=== PATIENT | male | born 1990 | race Caucasian/White ===

== ENCOUNTER 2016-10-08 18:06 | Emergency (ER) | payer OTHER ==
[2016-10-08 18:41] VITALS: BP 162/87
--- NOTE | 2016-10-08 19:06 | UC ---
Lower Extremity/Ankle HPI - History of Current Complaint Chief Complaint: UCLowerExtremity Stated Complaint: KNEE COMPLAINT Time Seen by Provider: 10/08/16 18:49 Hx Obtained From: Patient Onset/Duration: Gradual Onset - started 2 days ago with redness and swelling in R knee. has gotten worse over past day. painful to ambulate. knee feels more swollen and red after standing at work today. denies known injury or skin break Severity Initially: Mild Severity Currently: Moderate Aggravating Factor(s): Standing, Ambulation Alleviating Factor(s): Rest, Elevation Able to Bear Weight: Yes - Allergies/Home Medications Allergies/Adverse Reactions: Allergies Allergy/AdvReac Type Severity Reaction Status Date / Time No Known Allergies Allergy Verified 05/11/15 09:11 PMH/Surg Hx/FS Hx/Imm Hx Previously Healthy: Yes Endocrine History Of: Reports: Diabetes - type 1 Cardiovascular History Of: Denies: Cardiac Disorders, Hypertension - Surgical History Surgical History: None - Family History Known Family History: Positive: None - Social History Occupation: Employed Full-time - cook Lives: With Family Alcohol Use: Occasionally Substance Use Type: None Smoking Status (MU): Light Every Day Tobacco Smoker Type: Cigarettes Cessation Counseling: Patient Advised to Stop - Immunization History Most Recent Tetanus Shot: UNSURE Review of Systems Constitutional: Negative Skin: Other - red swollen R knee Respiratory: Negative Cardiovascular: Negative Musculoskeletal: Other: - R knee pain Neurological: Negative Psychological: Negative All Other Systems Reviewed And Are Negative: Yes Physical Exam Triage Information Reviewed: Yes Appearance: Well-Appearing, No Pain Distress, Well-Nourished Vital Signs: Initial Vital Signs Temp 98.5 F 10/08/16 18:35 Pulse 106 10/08/16 18:35 Resp 18 10/08/16 18:35 BP 162/87 10/08/16 18:35 Pulse Ox 99 10/08/16 18:35 Vital Signs Reviewed: Yes Neck exam: Normal Respiratory Exam: Normal Cardiovascular Exam: Normal Musculoskeletal: Positive: ROM Limited @ - R knee with full flexion Skin: Positive: Other - R anterior knee erythemic, swollen and warm to touch. there are several scabbed abrasions on lower leg, none draining, pt states he scratches his skin. no certain area of fluctuance or obvious abscess surrounding knee Lower Extremity Course/Dx - Differential Dx/Diagnosis Differential Diagnosis/HQI/PQRI: Bursitis, Cellulitis, Gout, Sprain, Strain Provider Diagnoses: Cellulitis R knee Discharge - Discharge Plan Condition: Stable Disposition: HOME Prescriptions: Cephalexin CAP* [Keflex 500 CAP*] 500 mg PO QID #40 cap Referrals: Suman Cash MD [Primary Care Provider] - 2 Days (for recheck) Additional Instructions: elevate your leg and apply warm packs for 15-20 minutes every 2 hours take keflex as prescribed Return here for recheck tomorrow if worse otherwise see Dr. Cash next week for follow-up
[2016-10-08] MEDS ORDERED: cefTRIAXone VIAL(*) 1,000 MG VIAL IM ONE (19:08)
[2016-10-08] MEDS ORDERED: Cephalexin CAP* 500 MG PO ONE (19:15)
[2016-10-08] MEDS ORDERED: Lidocaine 1% MPF* 2 ML VIAL ONE (19:20)
== END 2016-10-08 19:43 | disposition home or self-care (01) ==
LOC: UCEAST 18:06
DX: L03.115 Cellulitis of right lower limb (principal); E10.9 Type 1 diabetes mellitus without complications; F17.290 Nicotine dependence, other tobacco product, uncomplicated
CPT/HCPCS: 96372; 99212; A9270-GY; G0463; J0696

== ENCOUNTER 2018-02-28 16:10 | Emergency (ER) | payer BC ==
[2018-02-28 16:21] VITALS: BP 130/81
[2018-02-28] MEDS ORDERED: Ciprofloxacin 0.3% OPTH.SOL* 2.5 ML BTL RIGHT EYE ONE (16:29)
--- NOTE | 2018-02-28 16:29 | UC ---
Eye Complaint HPI - HPI Summary HPI Summary: 27 yo male presents with right eye redness, itching, and drainage since last night. Woke up this morning and his right eye was crusted with yellow discharge. He wears glasses, but never contacts. Denies fever, chills, recent illness, or vision changes. - History of Current Complaint Chief Complaint: UCEye Stated Complaint: EYE IRRITATION Time Seen by Provider: 02/28/18 16:25 Hx Obtained From: Patient Onset/Duration: Sudden Onset Timing: Constant Severity Initially: Mild Severity Currently: Mild Pain Intensity: 3 Pain Scale Used: 0-10 Numeric - Allergies/Home Medications Allergies/Adverse Reactions: Allergies Allergy/AdvReac Type Severity Reaction Status Date / Time No Known Allergies Allergy Verified 02/28/18 16:21 Home Medications: Home Medications Insulin Glargine,Hum.rec.anlog [Candida Stephenson U-100] 02/28/18 [History] PMH/Surg Hx/FS Hx/Imm Hx Endocrine History: Diabetes - Surgical History Surgical History: None - Family History Known Family History: Positive: None - Social History Lives: With Family Alcohol Use: Occasionally Substance Use Type: None Smoking Status (MU): Light Every Day Tobacco Smoker Type: Cigarettes - Immunization History Most Recent Tetanus Shot: UNSURE Review of Systems Constitutional: Negative Skin: Negative Eyes: Drainage, Eye Redness ENT: Negative Respiratory: Negative Cardiovascular: Negative Gastrointestinal: Negative Neurological: Negative Psychological: Negative All Other Systems Reviewed And Are Negative: Yes Physical Exam - Summary Physical Exam Summary: GENERAL: NAD. WDWN. No pain distress. SKIN: No rashes, sores, lesions, or open wounds. HEENT: Head: AT/NC Eyes: EOM intact. PERRLA. Right eye: Mild conjunctiva edema and erythema. Mild scleral injection with yellow purulent matter. Left eye: Conjunctiva clear without inflammation or discharge. Ears: Hearing grossly normal. TMs intact, no bulging, erythema, or edema. Nose: Nasal mucosa pink and moist. NTTP maxillary and frontal sinus. Throat: Posterior oropharynx without exudates, erythema, or tonsillar enlargement. Uvula midline. NECK: Supple. Nontender. No lymphadenopathy. CHEST: No accessory muscle use. Breathing comfortably and in no distress. CV: Pulses intact. Brisk cap refill. NEURO: Alert. CN II-XII grossly intact. PSYCH: Age appropriate behavior. Triage Information Reviewed: Yes Vital Signs: Initial Vital Signs Temp 98 F 02/28/18 16:19 Pulse 97 02/28/18 16:19 Resp 16 02/28/18 16:19 BP 130/81 02/28/18 16:19 Pulse Ox 100 02/28/18 16:19 Eye Complaint Course/Dx - Course Course Of Treatment: Right eye conjunctivitis - Differential Dx/Diagnosis Provider Diagnoses: Right eye conjunctivitis Discharge - Sign-Out/Discharge Documenting (check all that apply): Discharge/Admit/Transfer - Discharge Plan Condition: Stable Disposition: HOME Patient Education Materials: Conjunctivitis (ED) Referrals: Suman Cash MD [Primary Care Provider] - Additional Instructions: If you develop a fever, shortness of breath, chest pain, new or worsening symptoms - please call your PCP or go to the ED. - Billing Disposition and Condition Condition: STABLE Disposition: Home
== END 2018-02-28 16:41 | disposition home or self-care (01) ==
LOC: UCEAST 16:10
DX: H10.9 Unspecified conjunctivitis (principal); E11.9 Type 2 diabetes mellitus without complications; F17.210 Nicotine dependence, cigarettes, uncomplicated; Z79.4 Long term (current) use of insulin
CPT/HCPCS: 99212; A9270-GY; G0463